=== PATIENT | male | born 1975 | race Caucasian/White ===

== ENCOUNTER 2020-02-18 00:01 | Emergency (ER) | payer BC, SELFPAY ==
--- NOTE | ~2020-02-18 | XR_ITS ---
EXAMINATION: XR foot LT min 3V DATE: 02/18/2020 01:11 INDICATION: Left foot injury and pain. TECHNIQUE: 4 views of left foot were obtained. COMPARISON: None. FINDINGS: There is mild hallux. There is a nondisplaced oblique fracture of neck of second metatarsal . There is mild osteoarthritis of talonavicular joint. There is an enthesophyte at posterior aspect o f calcaneal tuberosity. IMPRESSION: 1. Nondisplaced oblique fracture of neck of second metatarsal. Reviewed, dictated and finalized at location A.
[2020-02-18] MEDS: IBUPROFEN 600 MG TABLET PO (03:21)
[2020-02-18 03:23] VITALS: BP 137/91; PULSE 67; RESP 16; O2SAT 98
--- NOTE | 2020-02-18 03:32 | ED_ITS ---
HPI - Extremity Injury (Lower) General Chief Complaint: Extremity Injury, Lower Stated Complaint: left foot injury Time Seen by Provider: 02/18/20 02:51 Source: patient Mode of arrival: ambulatory Limitations: no limitations History of Present Illness HPI Narrative: This patient presents with c/o left foot pain and swelling s/p injury. Patient states that he accidentally dropped a tire on top of his left foot just prior to arrival. He states he has been developed bruising to foot while waiting in ED. He has some numbness to big toe. He has pain with movement. MD complaint: foot injury Related Data Allergies Allergy/AdvReac Type Severity Reaction Status Date / Time No Known Allergies Allergy Verified 02/18/20 00:23 Review of Systems Musculoskeletal: Comments: reports left foot bruising, pain and swelling Integumentary/Breasts: Comments: abrasion to foot PMFSH Surgical History Surgical History (Updated 02/18/20 @ 03:33 by Elvia Gay MD) History of hernia repair Exam Const: General: no acute distress and alert Orientation/consciousness: patient oriented x3 Resp: Effort & Inspection: normal respiratory effort Skin: Other: abrasion to left foot at MtP joint with bruising at 2 nd metatarsal dorsum foot Neuro: General: patient oriented x3 and moves all extremities Extrem: Other: left foot with bruising and swelling at second MTP dorsum, TTP Psych: Mental Status: mental status grossly normal Course Reevaluation(s) Reevaluation #1: I have discussed with patient that he has fracture so he will be placed in splint and referred to orthopedic surgeon Date: 02/18/20 Time: 03:40 Vital Signs Vital signs: Vital Signs Pulse Rate 67 02/18/20 03:23 Respiratory Rate 16 02/18/20 03:23 Blood Pressure 137/91 H 02/18/20 03:23 Pulse Oximetry 98 02/18/20 03:23 Pulse Rate 72 02/18/20 04:45 Respiratory Rate 16 02/18/20 04:45 Blood Pressure 129/78 02/18/20 04:45 Pulse Oximetry 98 02/18/20 04:45 MDM - Extremity Injury (Lower) Imaging Data Attestation: I personally reviewed and interpreted this imaging study as follows: My impression: left foot xray-- nondisplaced 2 nd metarsal neck fracture Discharge Plan Discharge Clinical Impression: Nondisplaced fracture of second metatarsal bone, left foot, initial encounter for closed fracture Patient Disposition: Home, Self-Care Condition: Stable Instructions: Foot Fracture in Adults (ED) Additional Instructions: Call orthopedic surgeon tomorrow to arrange for follow up of your broken foot. Keep foot elevated when possible. Prescriptions: New hydrocodone-acetaminophen [Garnett] 5-325 mg tablet 1 tablet PO Q4H PRN (Reason: pain) Qty: 20 RF: 0 Follow-up/Referrals: Liam,Harvey Sanchez MD [Primary Care Provider] - Rodríguez Cortes MD [Physician] - Stand Alone Forms: Work/School Release IP Discharge Date/Time: 02/18/20 05:00
[2020-02-18 04:45] VITALS: BP 129/78; PULSE 72; RESP 16; O2SAT 98
== END 2020-02-18 05:00 | disposition home or self-care (01) ==
PROVIDERS: Emergency Provider General Practice; PCP Internal Medicine
DX: S92.325A Nondisplaced fracture of second metatarsal bone, left foot, initial encounter for closed fracture (principal); W20.8XXA Other cause of strike by thrown, projected or falling object, initial encounter
CPT/HCPCS: 29515; 73630; 99284; A9270

== ENCOUNTER 2025-07-26 14:53 | Emergency (ER) | payer OTHER, SELFPAY ==
--- OUTSIDE RECORDS SUMMARY | 2025-07-26 14:55 | XMS_ITS | Clinical Summary ---
Author Organization [facility] Address [address] [address] Phone Care Team Providers Care Cafeteria Table Attendant Name Role Phone Harvey Wheeler MD Primary Care Provider [phone] Eliezer Carr MD Unavailable Allergies No known active allergies Medications acetaminophen (TYLENOL) 325 MG Tablet Take 1 Tablet by mouth every 6 hours as needed for Fever (for temperature greater than 100.4 F.). Do not exceed 4000 mg of acetaminophen in 24 hour from all sources. 3 Active Active Problems Problem Noted Date Diagnosed Date Umbilical hernia with obstruction, without gangr margarita 06/30/2023 Alpha-thalassemia 11/03/2015 Tobacco abuse Family History Medical History Relation Name Comments No Known Problems Brother Suicide Attempts Father Heart Attack Maternal Grandfather Diabetes Maternal Grandmother Chronic Obstructive Pulmonary Disease Mother Congestive Heart Failure Mother Vbmk-Jdqrqpwmd-Atmeh Syndrome Mother No Known Problems Paternal Grandfather No Known Problems Paternal Grandmother No Known Problems Son 1 Other-comment Son 2 in housef orin Relation Name Status Comments Brother Alive Father Maternal Grandfather Maternal Grandmother Mother Paternal Grandfather Paternal Grandmother Alive Son 1 Alive Son 2 Social History Tobacco Use Types Packs/Day Years Used Date Smoking Tobacco: Former Cigarettes 1 23 - 2015 Smokeless Tobacco: Never Tobacco Cessation:Counseling Given: Not Answered Alcohol Use Standard Drinks/Week Comments Not Currently 0 (1 standard drink = 0.6 oz pur e alcohol) Rare Education Answer Date Recorded What is the highest level of school you have completed or the highest degree you have received? GED or equivalent Sexually Active Control Partners Comments Yes Female Sex and Gender Information Value Date Recorded Sex Assigned at Not on file Legal Sex Male 8:52 PM CDT Gender Identity Not on file Sexual Orientation Not on file Last Filed Vital Signs Vital Sign Reading Time Taken Comments Blood Pressure 134/90 08/28/2023 9:55 AM [employer] Pulse 70 08/28/2023 9:55 AM [employer] Temperature 36 C (96.8 F) 08/28/2023 9:55 AM [employer] Respiratory Rate 21 08/28/2023 9:55 AM [employer] Oxygen Saturation 97% 08/28/2023 9:55 AM [employer] Inhaled Oxygen Concentration - - Weight 99.8 kg (220 lb) 08/28/2023 8:16 AM [employer] Height 177.8 cm (5' 10) 08/28/2023 8:16 AM [employer] Body Mass Index 31.57 08/28/2023 8:16 AM [employer] Plan of Treatment Health Maintenance Due Date Last Done Comments Hepatitis C Virus (HCV) Screening 1975 TdaP Immunization 1975 Hepatitis B Immunization (1 of 3 - 19+ 3-dose series) 1994 Pneumococcal Immunization Combined (1 of 2 - PCV) 1994 Cologuard 2020 Immunochemical Fecal Occult Blood 2020 Influenza Immunization (#1) 2025 SARS-COV-2 Immunization ( season) 2025 Colonoscopy 08/28/2033 08/28/2023, 08/28/2023 Colorectal Cancer Screening 08/28/2033 Respiratory Syncytial Virus (RSV) Immunization (Adult) (1 - 1-dose 75+ series) 2050 Human Papillomavirus (HPV) Immunization Aged Out No longer eligible b ased on patient's age to complete this topic Meningococcal Immunization (ACWY) Aged Out No longer eligible b ased on patient's age to complete this topic Rotavirus Immunization Aged Out No lo nger eligible based on patient's age to complete this topic Medical Devices Implanted Type [employer] Device Identifier Shelf Expiration Date Model / Serial / Lot Impl Msh Andreea Ventralex St Strap Cir Sm 1.7x1.7in - [id number] Implanted:Qty : 1 on 06/30/2023 by Eliezer Carr MD at [facility] IMPLANT N/A: Umbilical [employer] 06/05/2024 [id number] / [id number] / [id number] Insurance [facility] Care Teams Cafeteria Table Attendant Relationship Specialty Start Date End Date Harvey Wheeler MD [address] [facility] [address] [place] [address] PCP - General Family Medicine 12/12/22 Eliezer Carr MD [address] [facility] [address] [place] [address] Consulting Physician Colon and Rectal Surgery 03/20/23
--- NOTE | 2025-07-26 14:56 | ED_ITS ---
HPI - Ear Problem General Chief complaint: Ear Stated complaint: ear bud stuck in left ear Time Seen by Provider: 07/26/25 15:03 Source: patient, RN notes reviewed and old records reviewed Mode of arrival: ambulatory Limitations: no limitations History of Present Illness HPI Narrative: 50-year-old male presents to the [facility] with complaints of an ear bud stuck in his left ear since last night. Treatment prior to arrival: none Related Data Allergies Allergy/AdvReac Type Severity Reaction Status Date / Time No Known Allergies Allergy Verified 02/18/20 00:23 Review of Systems Review of Systems: All systems reviewed & are unremarkable except as noted in HPI and below Constitutional: Constitutional: Reports no additional constitutional complaints ENT: Reports as per HPI Cardiovascular: Cardiovascular: Reports no additional cardiovascular complaints, Denies chest pain and Denies dyspnea Respiratory: Respiratory: Reports no additional respiratory complaints, Denies chest congestion, Denies cough and Denies dyspnea Musculoskeletal: Musculoskeletal: Reports no additional musculoskeletal complaints Integumentary/Breasts: Skin/Breast: Reports system reviewed and no additional complaints, except as docu PMFSH Surgical History Surgical History History of hernia repair Comments At the time of my signature, I reviewed and agree with the nursing past medical, surgical, social, and family history. There is no relevant family history pertinent to the patient complaint. Exam Const: General: cooperative, healthy appearing, comfortable, no acute distress, well developed, alert and well nourished Nutritional Appearance: well nourished Orientation/consciousness: patient oriented x3 Limitations: no limitations HENMT: Head: normal to inspection Ears: hearing grossly normal bilaterally, external ears normal, mastoids normal, no periauricular adenopathy and Abnormal EAC present foreign body on the left Mouth: Yes Normal oral and palatal mucosa present, Yes lip normal, Yes tongue normal and Yes moist mucous membranes abnormal Eyes: General: appearance normal, both eyes and all related structures Alignment and Position: alignment normal Neck: Neck: normal visual inspection, full ROM, no lymphadenopathy and no meningeal signs Chest: Chest palpation & inspection: normal inspection of the chest Resp: Effort & Inspection: normal respiratory effort and able to speak in complete sentences Cardio: Rate: regular rate Skin: General skin exam: normal color and no rashes or lesions noted Neuro: General: patient oriented x3, gait normal, moves all extremities and no meningeal signs Cognition (Neuro): normal cognition Speech: normal speech Gait exam (Neuro): Normal gait present Extrem: General: normal to inspection, full ROM, capillary refill normal and normal gait Psych: Appearance: grossly normal and well kempt Mental Status: mental st atus grossly normal Speech and movement: Normal speech and movement present and Clear speech present Affect: normal affect Attitude: cooperative Course Course Level of Care: Express Care Visit Vital Signs Vital signs: Vital Signs Temperature 98.3 F 07/26/25 15:00 Pulse Rate 68 07/26/25 15:00 Respiratory Rate 20 07/26/25 15:00 Blood Pressure 155/96 H 07/26/25 15:00 Pulse Oximetry 98 07/26/25 15:00 Oxygen Delivery Room Air 07/26/25 15:00 Temperature 98.3 F 07/26/25 15:00 Pulse Rate 68 07/26/25 15:00 Respiratory Rate 20 07/26/25 15:00 Blood Pressure 155/96 H 07/26/25 15:00 Pulse Oximetry 98 07/26/25 15:00 Oxygen Delivery Room Air 07/26/25 15:00 Reviewed Procedures FB Removal Ear Foreign Body #1: Foreign Body Removal Date: 07/26/25 Foreign Body Removal Time: 15:15 Location: ear canal (L) Foreign Body Suspected: other plastic TM intact pre-procedure: unable to visualize If Insect Suspected: ear canal instilled with other (peroxide and water) Foreign Body Removed: yes Foreign Body Removal Technique: forceps Tympanic Membrane Intact Post Procedure: Yes Patient Tolerated Procedure: well Complications: none Additional Comments: Procedure explained to patient. Verbal consent obtained. Irrigated with water peroxide. Small movement of the ear bud rubber piece is noted. Able to grab with alligator forceps, removed without issue. Patient tolerated procedure well Medical Decision Making MDM Narrative Medical decision making narrative: Patient sitting in exam room. Patient is nontoxic, blood pressure is elevated, no past history. Patient denies any chest pain or headache. Has and rubber piece of his ear bud stuck in his left ear since last night. Able to remove with peroxide an alligator forceps. A he erythema noted to the area with the ear but was lying. TM is with intact. Patient is appropriate for outpatient treatment with close follow-up. Prescribing antibiotic with steroids to reduce the inflammation and prevent infection to the ear canal. Discharge instructions reviewed with patient, as well as provided in writing per nursing staff. The instructions also include specific and strict return/GO TO THE ER as well as f/u information. All questions have been answered, and the patient deny any further questions with discharge and discharge plan. Some parts of this dictation were generated by voice recognition software and may contain typographical and/or grammatical inaccuracies. Differential Diagnosis Differential Diagnosis: Foreign body Medical Records Medical records reviewed: Yes I reviewed the external patient's medical records. Vital Signs Vital Signs: Vital Signs Temperature 98.3 F 07/26/25 15:00 Pulse Rate 68 07/26/25 15:00 Respiratory Rate 20 07/26/25 15:00 Blood Pressure 155/96 H 07/26/25 15:00 Pulse Oximetry 98 07/26/25 15:00 Oxygen Delivery Room Air 07/26/25 15:00 Temperature 98.3 F 07/26/25 15:00 Pulse Rate 68 07/26/25 15:00 Respiratory Rate 20 07/26/25 15:00 Blood Pressure 155/96 H 07/26/25 15:00 Pulse Oximetry 98 07/26/25 15:00 Oxygen Delivery Room Air 07/26/25 15:00 Reviewed Lab Data Lab results reviewed: Yes I reviewed the patient's lab results. Labs: Reviewed Critical Care Time Critical Care Time Critical Care Time: No Discharge Plan Discharge Clinical Impression: Acute foreign body of left ear canal Qualifiers: Encounter type: initial encounter Qualified Code(s): T16.2XXA - Foreign body in left ear, initial encounter Patient Disposition: Home Condition: Stable Instructions: Ear Foreign Body (ED) Additional Instructions: Do not use Q-tips Use ear drops as prescribed to reduce chances of infection Follow-up with primary care provider. Today your blood pressure was 155/96. It is recommended that you have your blood pressure rechecked within the next 2 weeks. Do not use Q-tips or put anything in the ear. This can damage the ear. Instead , use Debrox or ear wax remover. Place 5 drops in ear after a hot shower and place a warm compress over the ear for 20 minutes. alternate doing this every 3-4 days. It will break up the wax gently. Do not use too much pressure. Patient Language: Sinhala Prescriptions: New [id number] 3.5-10,000-1 mg/mL-unit/mL-% drops,suspension 4 drp LEFT EAR TID 5 Days Qty: 10 0RF Follow-up/Referrals: Liam,Harvey Sanchez MD [Primary Care Provider] - 2 Weeks Stand Alone Forms: Work/School Release IP Time of Disposition: 15:20
[2025-07-26 15:00] VITALS: BP 155/96; PULSE 68; RESP 20; TEMP 36.8; O2SAT 98
== END 2025-07-26 15:28 | disposition home or self-care (01) ==
PROVIDERS: Emergency Provider Nurse Practitioner; PCP Internal Medicine
DX: T16.2XXA Foreign body in left ear, initial encounter (principal); W44.G1XA Audio device entering into or through a natural orifice, initial encounter
CPT/HCPCS: 69200; 99213; G0463